=== PATIENT | male | born 1980 | race Caucasian/White ===

== ENCOUNTER 2021-09-24 10:15 | Emergency (ER) | payer OTHER ==
[~2021-09-24] VITALS: Ht 165.1 cm; Wt 70.3 kg
[~2021-09-24 10:15] MED LIST: HYDROCODONE-AP1 EAC6 PO; VALIUM5 MG PO; ZOFRAN4 MG PO
[2021-09-24 10:54] LABS: INFLUENZA A ANTIGEN Negative (Negative); INFLUENZA B ANTIGEN Negative (Negative)
[2021-09-24] MEDS ORDERED: PROAIR HFA8.5 GM INH (11:12)
[2021-09-24] MEDS ORDERED: DECADRON4 MG PO (11:12)
[2021-09-24] MEDS ORDERED: ZPAK PO (11:12)
[2021-09-24 11:17] VITALS: BP 121/91
== END 2021-09-24 11:18 | disposition home or self-care (01) ==
LOC: M.ERS 10:15
PROVIDERS: Nurse Practitioner Psychiatric/Mental Health
DX: U07.1 COVID-19 (principal); J12.82 Pneumonia due to coronavirus disease 2019; J44.9 Chronic obstructive pulmonary disease, unspecified; I10 Essential (primary) hypertension; M19.90 Unspecified osteoarthritis, unspecified site; F17.210 Nicotine dependence, cigarettes, uncomplicated; Z79.899 Other long term (current) drug therapy; Z88.8 Allergy status to other drugs, medicaments and biological substances; Z88.5 Allergy status to narcotic agent

== ENCOUNTER 2021-11-22 11:11 | Emergency (ER) | payer OTHER ==
[~2021-11-22] VITALS: Ht 165.1 cm; Wt 86.2 kg
[~2021-11-22 11:11] MED LIST changes: +DECADRON4 MG PO; +PROAIR HFA8.5 GM INH; +ZPAK PO
[2021-11-22 13:15] LABS: CALCIUM 8.5 mg/dL (8.5-10.1)
[2021-11-22 13:17] LABS: HEMATOCRIT 49.9 % (42.0-52.0); HEMOGLOBIN 17.8 gm/dL (14.0-18.0); MCH 35.1 pg (26.0-34.0); MCHC 35.6 g/dL (28.0-37.0); MCV 98.6 fL (80.0-100.0); MPV 7.4 fl. (7.2-11.1); NUCLEATED RBCS 0 /100WBC; PLATELET COUNT* 190 thou/uL (150-400); RBC 5.06 mil/uL (4.50-6.00); RDW-CV 13.5 % (10.5-14.5)
[2021-11-22 13:20] LABS: ALBUMIN 3.7 g/dL (3.4-5.0); TOTAL BILIRUBIN 0.3 mg/dL (<0.1-1.0); TOTAL PROTEIN 7.5 g/dL (6.4-8.2)
[2021-11-22 13:42] LABS: PLATELET ESTIMATE ADEQUATE
[2021-11-22 13:55] LABS: ABSOLUTE NEUTROPHILS 1.8 thou/uL (1.6-8.1)
[2021-11-22 13:56] LABS: ABSOLUTE LYMPHOCYTES 1.8 thou/uL (0.8-5.3)
[2021-11-22 13:57] LABS: ABSOLUTE EOSINOPHILS 0.1 thou/uL (0.0-0.7); ABSOLUTE MONOCYTES 0.4 thou/uL (0.0-1.2); METAMYELOCYTES 0 %
[2021-11-22] MEDS ORDERED: LEVAQUIN 500 M500 MG PO (14:10)
[2021-11-22] MEDS ORDERED: PREDNISONE 20 M20 M1 PO (14:10)
[2021-11-22 14:50] VITALS: BP 135/71
--- NOTE | 2021-11-23 11:01 | EKG ---
[place] [address] ELECTROCARDIOGRAM REPORT Name: TOÑITO CASTANON Room: [facility]#: [id number] Admission: 11/22/21 Attend Phys: Discharge: 11/22/21 Date of : 80 Date of Service: 11/22/21 1130 Report #: [id number] THIS REPORT FOR: //name// [facility] ED Test Date: 2021-11-22 Test Time: 11:30:40 Pat Name: TOÑITO CASTANON Department: Room: Gender: Rol[employer] Operator: [facility] : 1980 Requested By: Jurgen Grayson Order Number: [id number] MD: Toñito Russell Measurements Intervals [place] Rate: 125 P: 60 LA: 144 QRS: 48 QRSD: 79 T: 46 QT: 304 QTc: 439 Interpretive Statements Sinus tachycardia Left atrial enlargement No previous ECG available for comparison Electronically Signed On 11-23-2021 11:01:22 [employer]NAGER [employer]OPMENT by Toñito Russell [email or web address] <ELECTRONICALLY SIGNED> By: Toñito Russell MD, [facility] 11/23/21 1101 1130 29 Toñito Russell MD, FACC /EPI
== END 2021-11-22 14:50 | disposition home or self-care (01) ==
LOC: M.ERS 11:11
PROVIDERS: Family Medicine
DX: J18.9 Pneumonia, unspecified organism (principal); K62.5 Hemorrhage of anus and rectum; I10 Essential (primary) hypertension; J44.9 Chronic obstructive pulmonary disease, unspecified; M19.90 Unspecified osteoarthritis, unspecified site; F17.210 Nicotine dependence, cigarettes, uncomplicated; Z79.899 Other long term (current) drug therapy; Z88.8 Allergy status to other drugs, medicaments and biological substances; Z88.5 Allergy status to narcotic agent